=== PATIENT | male | born 2000 | race Caucasian/White ===

== ENCOUNTER 2023-08-18 14:18 | Emergency (ER) | payer BC ==
[2023-08-18 14:25] VITALS: BP 120/78; PULSE 68; RESP 18; TEMP 98.6; BMI 21.4
[2023-08-18 15:34] LABS: BASO % 0.4 % (0-2.0); EOS % 0.4 % (0-4.5); HEMATOCRIT 47.3 % (35.4-49); HEMOGLOBIN 16.1 GM/dL (11.7-16.9); LYMPH % 26.1 % (8-40); MCH 28.5 pg (25.7-33.7); MEAN CELL VOLUME 83.9 fl (80-96); MEAN PLT VOLUME 8.9 fl (7.5-11.1); MONO % 7.9 % (3.8-10.2); NEUT % 65.2 % (42.8-82.8); PLATELET COUNT 282 10^3/uL (134-434); RBC 5.64 M/mm3 (4.00-5.60); RDW 14.6 % (11.9-15.9); WHITE BLOOD COUNT 10.4 K/mm3 (4.0-10.0)
[2023-08-18 15:54] LABS: CHLORIDE 103 mmol/L (98-107); POTASSIUM 3.9 mmol/L (3.5-5.1); SODIUM 133 mmol/L (136-145)
[2023-08-18 15:56] LABS: CALCIUM 9.7 mg/dL (8.5-10.1)
[2023-08-18 15:57] LABS: ALBUMIN 4.6 g/dl (3.4-5.0); ANION GAP 1 mmol/L (4-13); CO2 30 mmol/L (21-32); GLUCOSE,RANDOM 83 mg/dL (74-106)
[2023-08-18 15:59] LABS: CREATININE 0.8 mg/dL (0.55-1.3); SGOT/AST 13 U/L (15-37); SGPT/ALT 24 U/L (13-61)
[2023-08-18 16:01] LABS: BILIRUBIN,TOTAL 0.8 mg/dL (0.2-1); TOT PROT 7.8 g/dl (6.4-8.2)
[2023-08-18 16:02] LABS: ALK PHOS 78 U/L (45-117)
== END 2023-08-18 17:28 | disposition home or self-care (01) ==
LOC: JER 14:18
DX: K52.9 Noninfective gastroenteritis and colitis, unspecified (principal); R10.12 Left upper quadrant pain; R10.31 Right lower quadrant pain; R11.2 Nausea with vomiting, unspecified
CPT/HCPCS: 36415; 74177-TC; 80053; 83690; 83735; 85025; 86140; 99285-25; Q9967